=== PATIENT | female | born 1985 | race Caucasian/White ===

== ENCOUNTER 2017-07-05 12:37 | Emergency (ER) | payer MEDICAID ==
[2017-07-05] MEDS: KETOROLAC 30 MG INJ IM (15:13)
[2017-07-05 15:32] LABS: ADD UMIC YES; UR ASCORBIC ACID NEGATIVE (NEGATIVE); UR BACTERIA MODERATE /HPF (NONE SEEN); UR BILIRUBIN (Dip) NEGATIVE (NEGATIVE); UR BLOOD (Dip) 2+ mg/dL (NEGATIVE); UR CLARITY CLEAR (CLEAR); UR COLOR STRAW (YELLOW); UR GLUCOSE (Dip) NEGATIVE (NEGATIVE); UR KETONES (Dip) TRACE mg/dL (NEGATIVE); UR LEUKOCYTE ESTERASE (Dip) NEGATIVE Leu/ul (NEGATIVE); UR NITRITE (Dip) NEGATIVE (NEGATIVE); UR RBC 0 /HPF (0-5); UR SPECIFIC GRAVITY (Dip) 1.003 (1.003-1.030); UR SQUAMOUS EPITHELIAL CELL FEW /HPF (FEW); UR TOTAL PROTEIN (Dip) NEGATIVE (NEGATIVE); UR UROBILINOGEN (Dip) NEGATIVE (NEGATIVE); UR WBC 0 /HPF (0-5)
== END 2017-07-05 17:23 | disposition home or self-care (01) ==
LOC: FTE 12:37
DX: M54.5 Low back pain (principal)
CPT/HCPCS: 76830; 76856; 81001; 96372; 99285-25

== ENCOUNTER 2018-06-26 07:16 | Emergency (ER) | payer MEDICAID | END 2018-06-26 07:58 | disposition home or self-care (01) | LOC: FTE 07:16 | DX: B00.1 Herpesviral vesicular dermatitis (principal) | CPT/HCPCS: 99283; Z7502 ==